=== PATIENT | female | born 1965 | race Caucasian/White ===

== ENCOUNTER → 2019-11-02 15:13 | Outpatient (CLI) | payer BC, SELFPAY ==
--- NOTE | ~2019-11-02 | MMUS_ITS ---
EXAMINATION: MM diagnostic jessica BI w cliff, US breast BI limited HISTORY: Follow-up for probably benign right breast mass and left breast asymmetry TECHNIQUE: Craniocaudal, mediolateral, and mediolateral oblique 3-D tomosynthesis images of the ailyn ts were performed and synthetic 2-D images were generated. Spot compression views were also obtained. CAD analysis was submitted and interpreted. High resolution limited bilateral breast ultrasound was performed. COMPARISON: 07/22/2018, 01/12/2018, 07/30/2017, 07/15/2017 BREAST PARENCHYMAL COMPOSITION: The breasts are heterogeneously dense, which may obscure small masses . FINDINGS: MAMMOGRAPHIC FINDINGS: Left breast: Asymmetry in the posterior third of the breast on the craniocaudal view remains stable. There is no suspicious mass, calcification, or architectural distortion. Right breast: Again seen is a stable 12 mm x 6 mm oval, obscured, equal density mass with associated dystrophic calcification at the 9:00 location 7 cm from the nipple. There has been no suspicious inte rval change. There is a new 5 mm mass in the skin of the posterior third of the upper inner breast 10 cm from the nipple. ULTRASOUND: Left breast: No suspicious cystic or solid mass is identified. Right breast: There is a sebaceous cyst of the upper inner breast corresponding to the new mammograph ic finding in question. IMPRESSION: 1. Mass of the outer right breast and asymmetry of the left breast the craniocaudal view which demons trate two years of stability, consistent with benign findings. 2. Recommend routine screening mammography in one year. BI-RADS Category 2: Benign finding(s). Reviewed, dictated and finalized at location A. IMPRESSION: 1. Mass of the outer right breast and asymmetry of the left breast the cranioca udal view which demonstrate two years of stability, consistent with benign find ings. 2. Recommend routine screening mammography in one year. BI-RADS Category 2: Benign finding(s).
== END ==
PROVIDERS: PCP Family Medicine; Visit Provider Obstetrics & Gynecology Gynecology
DX: Z12.31 Encounter for screening mammogram for malignant neoplasm of breast (principal); R92.8 Other abnormal and inconclusive findings on diagnostic imaging of breast
CPT/HCPCS: 76642; 77062; 77066; G0279

== ENCOUNTER 2020-06-08 01:00 | Outpatient (CLI) | payer BC, SELFPAY ==
[2020-06-08 20:27] LABS: SARS-CoV-2 RNA PCR Negative
== END 2020-06-08 01:01 | disposition home or self-care (01) ==
LOC: ANHCOVIDDT 01:01
PROVIDERS: PCP Family Medicine; Visit Provider Internal Medicine Gastroenterology
DX: Z01.812 Encounter for preprocedural laboratory examination (principal); Z20.828 Contact with and (suspected) exposure to other viral communicable diseases
CPT/HCPCS: 87635; C9803; U0003

== ENCOUNTER 2020-06-11 00:21 | Day surgery (SDC) | payer BC, SELFPAY ==
[2020-06-06 14:02] VITALS: BMI 23.8
[2020-06-11 06:29] VITALS: BP 139/92; PULSE 78; RESP 16; TEMP 36.1; O2SAT 99; BMI 22.9
[2020-06-11] MEDS: LACTATED RINGERS 1,000 ML 150 ML IV CONT (06:33)
--- NOTE | 2020-06-11 07:03 | WPDANESEPPF ---
Anes - Initial Pre Proc Eval Procedure: Operation Date: 06/11/20 07:30 Proposed Procedures p Screening Colonoscopy - Alessandro Mendez MD Date/Time: 06/11/20 07:03 Surgeon: Alessandro Mendez MD Pre Op Diagnosis: neoplasm screening Patient Data Age: 55 Gender: F Height: 5 ft 4 in Weight: 60.7 kg Last Vital Signs Temp 36.1 C L 06/11/20 06:29 Pulse 78 06/11/20 06:29 Resp 16 06/11/20 06:29 BP 139/92 H 06/11/20 06:29 Pulse Ox 99 06/11/20 06:29 Allergies Allergy/AdvReac Type Severity Reaction Status Date / Time No Known Allergies Allergy Verified 06/11/20 06:22 Home Medications Medication Instructions Recorded Confirmed Type cholecalciferol (vitamin D3) 250 mcg PO DAILY 06/06/20 06/11/20 History [Vitamin D3] Patient hx anesthesia problems: none Family hx anesthesia problems: none PMFSH Past Medical History Medical History Elevated blood pressure reading Mixed hyperlipidemia Pre-diabetes Tobacco use Family History Family History Sibling Family history of mental disorder Father Family history of cardiovascular disease Family history of coronary artery disease, Onset Age: 70 Mother Family history of malignant neoplasm of stomach, Onset Age: 70 Social History Social History Smoking packs per day: 1 Smoking cigarettes per day: 20.0 Years smoked: 15 Smoking pack-years: 15.00 Smoking status: Current every day smoker Tobacco type: cigarettes Alcohol intake: never Substance use: never Substance use type: does not use Living arrangements: with family Spiritual care concerns: No Anes - Eval Final PreProcedure Day of Procedure 06/11/20 07:03 Patient weight: normal Heart: regular rate and rhythm Lungs: decreased breath sounds Airway: Mallampati scale class II Neurological: alert and oriented Last oral intake: >/= 8 hours ASA classification: III Emergent: no Anesthetic plan: proceed Anesthesia type and monitoring: general GIVS and standard monitoring Informed Consent: The patient's anesthetic plan and its attendant risks and benefits were discussed with the patient/family/POA. Questions were solicited and answers provided to the satisfaction of the patient/family/POA.
--- NOTE | 2020-06-11 08:03 | P.CONGI_ITS ---
Assessment and Plan Assessment and plan (1) Encounter for screening colonoscopy: Code(s): Z12.11 - Encounter for screening for malignant neoplasm of colon Status: Acute Assessment and Plan: Patient presents for screening colonoscopy because of age. Plan is for colonoscopy further recommendations to be given after endoscopy. GI Consult Note Consult date/time: 06/11/20 08:03 HPI: Alejandra Johnson is a 55 year old female Seen in evaluation at the request of Dr. Do And also followed by Dr. Jessica jaimes. patient presents for neoplasia screening. Current weight appetite bowel movements are normal. She denies abdominal pain. Her bowel habits are regular. Family history is nonco ntributory Review of Systems Review of Systems: All systems reviewed & are unremarkable except as noted in HPI and below PMFSH Past Medical History Medical History Elevated blood pressure reading Mixed hyperlipidemia Pre-diabetes Tobacco use Family History Family History Sibling Family history of mental disorder Father Family history of cardiovascular disease Family history of coronary artery disease, Onset Age: 70 Mother Family history of malignant neoplasm of stomach, Onset Age: 70 Social History Social History Smoking packs per day: 1 Smoking cigarettes per day: 20.0 Years smoked: 15 Smoking pack-years: 15.00 Smoking status: Current every day smoker Tobacco type: cigarettes Alcohol intake: never Substance use: never Substance use type: does not use Living arrangements: with family Spiritual care concerns: No Meds Home Medications and Allergies Home Medications Medication Instructions Recorded Confirmed Type cholecalciferol (vitamin D3) 250 mcg PO DAILY 06/06/20 06/11/20 History [Vitamin D3] Allergies Allergy/AdvReac Type Severity Reaction Status Date / Time No Known Allergies Allergy Verified 06/11/20 06:22 Vital Signs Vital Signs - 24 hr 06/11/20 06:29 Temperature 96.9 F L Pulse Rate 78 Respiratory Rate 16 Blood Pressure 139/92 H Pulse Oximetry 99 Exam Narrative: Exam Narrative: physical exam reveals patient to be alert. Vital signs stable. HEENT exam unremarkable. Lungs are clear to auscultation and percussion. Heart is without murmur or extra sounds. Abdominal exam bowel sounds are present soft nontender with no organomegaly. Digital external rectal exam is normal.
[2020-06-11 08:04] VITALS: BP 91/63; PULSE 67; RESP 15; O2SAT 99
[2020-06-11 08:14] VITALS: BP 102/58; PULSE 67; RESP 19; O2SAT 99
[2020-06-11 08:24] VITALS: BP 129/77; PULSE 66; RESP 19; O2SAT 100
== END 2020-06-11 08:38 | disposition home or self-care (01) ==
PROVIDERS: PCP Family Medicine; Visit Provider Internal Medicine Gastroenterology
PROC: 0DJD8ZZ Inspection of Lower Intestinal Tract, Via Natural or Artificial Opening Endoscopic (ICD-10-PCS; CPT 45378; principal; 2020-06-11 07:30)
DX: Z12.11 Encounter for screening for malignant neoplasm of colon (principal); D12.5 Benign neoplasm of sigmoid colon; K64.8 Other hemorrhoids; E78.2 Mixed hyperlipidemia; F17.210 Nicotine dependence, cigarettes, uncomplicated
CPT/HCPCS: 45385; 88305; J2704; J7120

== ENCOUNTER 2020-08-25 11:01 | Emergency (ER) | payer BC, SELFPAY ==
[2020-08-25 11:10] VITALS: BP 150/93; PULSE 100; RESP 16; TEMP 36.8; O2SAT 100
--- NOTE | 2020-08-25 11:31 | ED.GENADULT ---
HPI - General Adult General Chief complaint: Skin/Abscess/Foreign Body Stated complaint: Pos skin abcess Source: patient Mode of arrival: ambulatory Limitations: no limitations History of Present Illness HPI narrative: Patient presents for evaluation of swollen lesion to the right breast. She indicates a couple weeks ago she saw a provider at her SENIOR STRUCTURAL ENGINEER's office who told her that she had a growth in the affected area. She saw her primary doctor on 08/17/2020 was told that she had a cyst was given a prescription for Bactrim which she has been taking twice daily. She was advised to apply warm compresses and was encouraged to return for worsening symptoms for incision and drainage of the lesion. She denies any fever, chills, nausea, vomiting, drainage from the affected area. She is not diabetic. She smokes 1 pack/day. No history of abnormal mammogram per her reports. Related Data Home Medications Medication Instructions Recorded Confirmed cholecalciferol (vitamin D3) 250 mcg PO DAILY 06/06/20 06/11/20 [Vitamin D3] Allergies Allergy/AdvReac Type Severity Reaction Status Date / Time No Known Allergies Allergy Verified 08/17/20 15:00 Review of Systems Review of Systems: Narrative: CONSTITUTIONAL: Denies fever, chills, or sweats. EYES: Denies visual changes, redness, or discharge. ENT: Denies rhinorrhea, congestion, sore throat, or otalgia. CARDIOVASCULAR: Denies chest pain, palpitations, or edema. RESPIRATORY: Denies cough or dyspnea. GASTROINTESTINAL: Denies abdominal pain, nausea, vomiting, or diarrhea. GENITOURINARY: Denies dysuria or hematuria. SKIN: Reports painful, swollen, erythematous lesion to the right anterior chest wall MUSCULOSKELETAL: Denies back pain, joint pain, or myalgia. NEUROLOGIC: Denies headache, numbness, dizziness, or weakness. PSYCHIATRIC: Denies anxiety or depression. [facility] Past Medical History Medical History Elevated blood pressure reading Mixed hyperlipidemia Pre-diabetes Tobacco use Surgical History Surgical History Hx of arthroscopy of knee Family History Family History Sibling Family history of mental disorder Father Family history of cardiovascular disease Family history of coronary artery disease, Onset Age: 70 Mother Family history of malignant neoplasm of stomach, Onset Age: 70 Social History Social History Smoking packs per day: 1 Smoking cigarettes per day: 20.0 Years smoked: 15 Smoking pack-years: 15.00 Smoking status: Current every day smoker Tobacco type: cigarettes Alcohol intake: never Substance use: never Substance use type: does not use Spiritual care concerns: No Exam Narrative: Exam Narrative: GENERAL: Well-appearing, well-nourished, and in no acute distress. HEAD: Normocephalic, atraumatic. EYES: PERRLA and EOMI. ENT: Nares clear, no rhinorrhea or epistaxis. Mucous membranes moist. Oropharynx without tonsillar hypertrophy exudate or other lesions. Bilateral TMs pearly rodriguez nonbulging NECK: Supple. No adenopathy or masses. No carotid bruits or JVD CHEST: Clear to auscultation. No respiratory distress. No wheezes rales or rhonchi HEART: Regular rate and rhythm. No murmur heard. Normal peripheral pulses. ABDOMEN: Soft, nontender, nondistended, normal active bowel sounds. EXTREMITIES: Normal range of motion. No edema. SKIN: Approximately 2 cm raised, erythematous tender lesion to the right anterior chest wall which is fluctuant-there is overlying erythema which is approximately 8 cm in size NEURO: No focal deficits. Alert and oriented x3. PSYCH: Normal mood and affect. Course Course Emergency Course: 1140 I spoke with SENIOR STRUCTURAL ENGINEER on-call, Dr. Gonzalez, who works with pt's OBGYN, Dr Do. She recommended that I call general surgery [phone]
== END 2020-08-25 12:44 | disposition home or self-care (01) ==
PROVIDERS: Emergency Provider Nurse Practitioner; PCP Family Medicine
DX: L72.3 Sebaceous cyst (principal); F17.210 Nicotine dependence, cigarettes, uncomplicated; E78.5 Hyperlipidemia, unspecified; R73.03 Prediabetes
CPT/HCPCS: 10061; 87070; 87075; 87076; 87205; 99213; G0463

== ENCOUNTER → 2021-01-19 08:44 | Outpatient (CLI) | payer BC, SELFPAY ==
--- NOTE | ~2021-01-19 | MM_ITS ---
EXAMINATION: MM screening jessica BI w cliff HISTORY: Screening mammogram TECHNIQUE: Craniocaudal and mediolateral oblique 3-D tomosynthesis images were obtained and synthetic 2-D images were generated. CAD analysis was submitted and interpreted. COMPARISON: 11/02/2019 bilateral diagnostic digital mammogram and Limited bilateral breast ultrasound e xamination 07/22/2018, 01/12/2018, 07/30/2017 bilateral diagnostic digital mammography and bilateral Limited ron st ultrasound examination 07/15/2017 bilateral digital screening mammogram BREAST PARENCHYMAL COMPOSITION: The breasts are heterogeneously dense, which may obscure small masses . FINDINGS: Stable mammographic asymmetry of both breasts. Stable 10 mm partially calcified probable be nign fibroadenoma, outer mid right breast at mid depth. Stable focal asymmetric density in the deep c entral left breast on craniocaudal view. There is no evidence of suspicious mass, calcification, or architectural distortion to suggest malign anita in either breast. There has been no suspicious interval change. IMPRESSION: 1. No mammographic evidence of malignancy. 2. Recommend routine screening mammography in one year. BI-RADS Category 2: Benign finding(s). Reviewed, dictated and finalized at location A.
--- NOTE | ~2021-01-19 | DEXA_ITS ---
Bone Density Report Name: Alejandra Johnson Age: 55 Sex: Female Ethnicity: White Date of : 1965 Indication: postmenopausal; screening for osteoporosis; Referring Provider: Anupam, Franca Study: Bone densitometry was performed. Exam Date: January 19, 2021 Accession number: [id number] Bone Density: Region BMD T-score Z-score Classification AP Spine (L1-L4) 1.001 -0.4 0.6 Normal Femoral Neck (Left) 0.768 -0.7 0.3 Normal Total Hip (Left) 0.958 0.1 0.8 Normal Femoral Neck (Right) 0.749 -0.9 0.1 Normal Total Hip (Right) 0.918 -0.2 0.5 Normal Total Hip Mean 0.938 -0.1 0.7 Normal World Health Organization criteria for BMD impression classify patients as: Normal (T-score at or above -1.0), Osteopenia (T-score between -1.0 and -2.5), or Osteoporosis (T-score at or below -2.5). 10-year Fracture Risk: FRAX not reported because: All T-scores for Spine Total, Hip Total, Femoral Neck at or above -1.0 Previous Exams: Region Exam Age BMD T-score BMD Change BMD Change Date g/cm2 vs Baseline vs Previous AP Spine(L1-L4) 01/19/2021 55 1.001 -0.4 -0.031* -0.031* 07/15/2017 52 1.033 -0.1 Total Hip(Left) 01/19/2021 55 0.958 0.1 -0.026 -0.026 07/15/2017 52 0.984 0.3 Total Hip(Right) 01/19/2021 55 0.918 -0.2 -0.064* -0.064* 07/15/2017 52 0.982 0.3 *Denotes significance at 95% confidence level, LSC for AP Spine = 0.022 g/cm2, LSC for Total Hip = 0.027 g/cm2 Clinical Information Provided by Patient: Smokes Has used the following medications: Vitamin D, MTV Patient maximum height was 62.63 Menopause Age: 50 No regular weight bearing exercise Drinks caffeinated beverages Onset of menses at age 16 Number of children 0 Impression: The patient has normal bone mass. The patient has risk factors, including: smoking. The BMD for the AP Spine(L1-L4) decreased, changing by -0.031 since the last DXA exam. The BMD for the Total Hip(Right) decreased, changing by -0.064 since the last DXA exam. Discussion: BONE DENSITY IS ABOVE THE MINIMUM DESIRABLE LEVEL AT ALL SKELETAL SITES TESTED. This patient?s bone mineral density is above the minimum desirable level (T-score -1.0 or better) at all sites measured. The patient should follow a healthful lifestyle (good nutrition with adequate calcium and vitamin D, and appropriate weight-bearing exercise). Follow-Up: Consider repeating this study in 3 to 4 years
== END ==
PROVIDERS: Visit Provider Nurse Practitioner
DX: Z12.31 Encounter for screening mammogram for malignant neoplasm of breast (principal); Z13.820 Encounter for screening for osteoporosis; Z78.0 Asymptomatic menopausal state
CPT/HCPCS: 77063; 77067; 77080

== ENCOUNTER → 2022-04-04 14:03 | Outpatient (CLI) | payer BC, SELFPAY ==
--- NOTE | ~2022-04-04 | MM_ITS ---
EXAMINATION: MM screening [facility] BI w cliff HISTORY: Screening mammogram TECHNIQUE: Craniocaudal and mediolateral oblique 3-D tomosynthesis images were obtained and synthetic 2-D images were generated. CAD analysis was submitted and interpreted. COMPARISON: 01/19/2021, 11/02/2019, 07/22/2018 BREAST PARENCHYMAL COMPOSITION: The breasts are heterogeneously dense, which may obscure small masses . FINDINGS: Scattered benign-appearing calcifications are present. There are also areas of stable asymm etry in the left breast on the craniocaudal view. There is no suspicious mass, calcification, or arch itectural distortion to suggest malignancy in either breast. There has been no suspicious interval ch randy. IMPRESSION: 1. No mammographic evidence of malignancy. 2. Recommend routine screening mammography in one year. BI-RADS Category 2: Benign finding(s). Reviewed, dictated and finalized at location A.
== END ==
PROVIDERS: PCP Family Medicine Sports Medicine; Visit Provider Nurse Practitioner
DX: Z12.31 Encounter for screening mammogram for malignant neoplasm of breast (principal)
CPT/HCPCS: 77063; 77067

== ENCOUNTER → 2023-07-13 14:41 | Outpatient (CLI) | payer BC, SELFPAY ==
--- NOTE | ~2023-07-13 | MM_ITS ---
EXAMINATION: MM screening jessica BI w cliff HISTORY: Screening TECHNIQUE: Craniocaudal and mediolateral oblique 3-D tomosynthesis images were obtained and synthetic 2-D images were generated. CAD analysis was submitted and interpreted. COMPARISON: No prior mammogram is available for comparison at this institution. BREAST PARENCHYMAL COMPOSITION: The breasts are heterogeneously dense, which may obscure small masses FINDINGS: There are benign calcifications of the right breast, likely partially calcified fibroadenom a. There is no evidence of suspicious mass, calcification, or architectural distortion to suggest mal ignancy in either breast. There has been no suspicious interval change. IMPRESSION: 1. No mammographic evidence of malignancy. 2. Recommend routine screening mammography in one year. BI-RADS Category 2: Benign finding(s). Reviewed, dictated and finalized at location A. [employer]LYST
== END ==
PROVIDERS: PCP Nurse Practitioner; Visit Provider Nurse Practitioner
DX: Z12.31 Encounter for screening mammogram for malignant neoplasm of breast (principal)
CPT/HCPCS: 77063; 77067

== ENCOUNTER 2024-04-01 13:02 | Outpatient (CLI) | payer BC, SELFPAY ==
--- NOTE | 2024-04-01 13:25 | ECG_ITS ---
Test Date: 2024-04-01 13:31:58 Measurements Intervals [place] Rate: 67 P: 63 OK: 157 QRS: 21 QRSD: 94 T: 21 QT: 384 QTc: 408 Interpretive Statements SINUS RHYTHM LEFT ATRIAL ENLARGEMENT [-0.15mV P WAVE IN V1/V2] POSSIBLE RIGHT VENTRICULAR CONDUCTION DELAY [RSR (QR) IN V1/V2] No previous ECG available for comparison Electronically Signed On 04-02-2024 14:26:30 CDT by Marvel Lamb M.D.
== END 2024-04-01 13:03 | disposition home or self-care (01) ==
LOC: ANHCARD 13:04
PROVIDERS: PCP Family Medicine; Visit Provider Physician Assistant Medical
DX: R07.9 Chest pain, unspecified (principal); I51.7 Cardiomegaly
CPT/HCPCS: 93005

== ENCOUNTER 2024-05-12 07:17 | Outpatient (CLI) | payer BC, SELFPAY ==
--- NOTE | ~2024-05-12 | NM_ITS ---
EXAMINATION: NM stress w perf spect multi DATE: 05/12/2024 10:01 INDICATION: Chest pain. TECHNIQUE: Rest images were obtained following intravenous administration of 10.3 mCi Tc99m tetrofosm in (Myoview). The patient performed an exercise activity. At peak exercise, 33.4 mCi Tc99m tetrofosmi n (Myoview) was administered intravenously, and stress images were obtained. Data was reconstructed i nto short axis and horizontal and vertical long axis SPECT images. Gated SPECT images were also obtai zahra. COMPARISON: None. FINDINGS: There is no definite reversible or fixed perfusion abnormality to suggest ischemia or infar ction. There is no segmental wall motion abnormality. Left ventricular ejection fraction measures > 70%. IMPRESSION: 1. No definite ischemia or infarct. 2. Normal left ventricular ejection fraction measuring >70%. Reviewed, dictated and finalized at location A.
--- NOTE | 2024-05-12 08:10 | EST_ITS ---
Patient Info Name: Alejandra Johnson Age: 59 years : 1965 Gender: Female BP: 105 / 81 mmHg Exam Date: 05/12/2024 8:21 AM Exam Location: Echo Lab Patient Status: Outpatient Admit Date: 05/12/2024 Staff Ordering Physician: Giancarlo Morales DO Attending Provider: Giancarlo Morales DO Exercise Technologist: Mary Ram CT Exercise Physician: Giancarlo Morales DO Exam Type: CA stress test treadmill w NM Study Info Indications R07.9 - Chest pain, unspecified A pharmacological stress test was performed. Summary 1. 1. Negative Ozzy exercise stress test for ischemic ST changes by ECG criteria. 2. 2. Reduced functional capacity, achieving 7 METs of workload. 3. 3. Appropriate HR response to exercise. 4. 4. Appropriate HR recovery at 1 minute post exercise. 5. 5. Nuclear scan to follow and will be reported separately. Please correlate with it. 6. 6. Patient informed of the above results. Protocol: Ozzy Stress ECG Details Stage: REST Duration (min): 0 min : 59 sec Speed (mph): 0.0 Grade (%): 0 HR (bpm): 63 SBP (mmHg): 105 DBP (mmHg): 81 METS: --- Stage: REST Duration (min): 5 min : 56 sec Speed (mph): 0.0 Grade (%): 0 HR (bpm): 69 SBP (mmHg): 105 DBP (mmHg): 81 METS: --- Stage: STAGE 1 Duration (min): 1 min : 0 sec Speed (mph): 1.7 Grade (%): 10 HR (bpm): 101 SBP (mmHg): 105 DBP (mmHg): 81 METS: --- Stage: STAGE 1 Duration (min): 2 min : 0 sec Speed (mph): 1.7 Grade (%): 10 HR (bpm): 115 SBP (mmHg): 105 DBP (mmHg): 81 METS: --- Stage: STAGE 1 Duration (min): 3 min : 0 sec Speed (mph): 1.7 Grade (%): 10 HR (bpm): 119 SBP (mmHg): 105 DBP (mmHg): 81 METS: --- Stage: STAGE 2 Duration (min): 1 min : 0 sec Speed (mph): 2.5 Grade (%): 12 HR (bpm): 134 SBP (mmHg): 105 DBP (mmHg): 81 METS: --- Stage: STAGE 2 Duration (min): 2 min : 0 sec Speed (mph): 2.5 Grade (%): 12 HR (bpm): 136 SBP (mmHg): 105 DBP (mmHg): 81 METS: --- Stage: STAGE 2 Duration (min): 3 min : 0 sec Speed (mph): 2.5 Grade (%): 12 HR (bpm): 137 SBP (mmHg): 207 DBP (mmHg): 104 METS: --- Stage: STAGE 3 Duration (min): 0 min : 20 sec Speed (mph): 3.4 Grade (%): 14 HR (bpm): 139 SBP (mmHg): 207 DBP (mmHg): 104 METS: --- Stage: RECOVERY Duration (min): 0 min : 39 sec Speed (mph): 0.0 Grade (%): 0 HR (bpm): 118 SBP (mmHg): 207 DBP (mmHg): 104 METS: --- Stage: RECOVERY Duration (min): 1 min : 39 sec Speed (mph): 0.0 Grade (%): 0 HR (bpm): 78 SBP (mmHg): 207 DBP (mmHg): 104 METS: --- Stage: RECOVERY Duration (min): 2 min : 32 sec Speed (mph): 0.0 Grade (%): 0 HR (bpm): 70 SBP (mmHg): 171 DBP (mmHg): 85 METS: --- Rest HR: 69 bpm Peak HR: 140 bpm Rest Sys BP: 105 mmHg Peak Sys BP: 207 mmHg Max Pred HR: 162 bpm % Max Pred HR: 86 % Target HR: 138 bpm Max RPP: 28,980 bpm*mmHg Mcgregor Score: 1 Termination Dimple
== END 2024-05-12 07:18 | disposition home or self-care (01) ==
PROVIDERS: PCP Family Medicine; Visit Provider Internal Medicine Cardiovascular Disease
DX: R07.9 Chest pain, unspecified (principal)
CPT/HCPCS: 78452; 93017; A9502